=== PATIENT | male | born 1950 | race Caucasian/White ===

== ENCOUNTER 2017-07-15 11:34 | Emergency (ER) | payer MEDICARE ==
[~2017-07-15] VITALS: Ht 185.4 cm; Wt 69.0 kg
[2017-07-15 11:39] VITALS: BP 118/57; PULSE 92; RESP 15; TEMP 98.3; O2SAT 96
== END 2017-07-15 12:30 | disposition left against medical advice (07) ==
LOC: PHED 11:34
DX: R53.83 Other fatigue (principal); E86.0 Dehydration; Z53.21 Procedure and treatment not carried out due to patient leaving prior to being seen by health care provider
CPT/HCPCS: 99281